=== PATIENT | female | born 1955 | race Caucasian/White ===

== ENCOUNTER 2017-10-09 06:35 | Day surgery (SDC) | payer BC ==
[~2017-10-09 06:35] MED LIST: Acetaminophen TAB* 325 MG PO ONE; Buffered Lidocaine 0.9% SYRIN* 5 ML/SYR SYRINGE INTRADERM ONE; Dexamethasone IV* 4 MG/ML 1 ML (4 MG) IV SLOW PU ONE; Famotidine IV* 10 MG/ML 2 ML (20 mg) IV ONE
[2017-10-09] MEDS ORDERED: Acetaminophen TAB* 325 MG ONE (06:46)
[2017-10-09] MEDS ORDERED: Famotidine IV* 10 MG/ML 2 ML (20 mg) ONE (06:47)
[2017-10-09] MEDS ORDERED: ceFAZolin 2 GM PREMIX (*) 2 GM/50 ML BAG IVPB ONE (06:47)
[2017-10-09] MEDS ORDERED: Dexamethasone IV* 4 MG/ML 1 ML (4 MG) ONE ×3 (06:47→09:54)
[2017-10-09] MEDS ORDERED: Propofol* 500 MG/50 ML BTL ONE (07:17)
[2017-10-09] MEDS ORDERED: Lidocaine 2% PF * 5 ML VIAL ONE (07:18)
[2017-10-09] MEDS ORDERED: Midazolam* 1 MG/ML 2 ML VIAL (2 MG) ONE ×2 (07:25→09:45)
[2017-10-09] MEDS ORDERED: fentaNYL* 50 MCG/ML 2 ML VIAL (100 MCG VIAL) ONE ×2 (07:26→09:06)
[2017-10-09] MEDS ORDERED: Ondansetron INJ* 2 MG/ML VIAL IV PRN (07:33)
[2017-10-09] MEDS ORDERED: oxyCODONE/Acetamin 5/325 MG* TAB PO PRN (07:33)
[2017-10-09] MEDS ORDERED: HYDROmorphone INJ* 1 MG/ML CARPUJECT SYRINGE IV PRN (07:33)
[2017-10-09] MEDS ORDERED: fentaNYL* 50 MCG/ML 2 ML VIAL (100 MCG VIAL) IV PRN (07:33)
[2017-10-09] MEDS ORDERED: PROCHLORPERAZINE INJ 5 MG/ML 2 ML VIAL IV PRN (07:33)
[2017-10-09] MEDS ORDERED: oxyCODONE TAB* 5 MG TAB PO PRN (07:33)
[2017-10-09] MEDS ORDERED: Scopolamine 1.5 mg* PATCH TRANSDERM PRN (07:33)
[2017-10-09] MEDS ORDERED: HYDROcodone/ACETAMIN 5-325 MG* 1 TAB PO PRN (07:33)
[2017-10-09] MEDS ORDERED: Ibuprofen TAB* 600 MG PO PRN (07:33)
[2017-10-09] MEDS ORDERED: DiMENhydriNATE IV* 50 MG/ML VIAL IV PUSH PRN (07:33)
[2017-10-09] MEDS ORDERED: Ketorolac INJ* 30 MG/ML 1 ML VIAL ONE (07:34)
[2017-10-09] MEDS ORDERED: Ondansetron INJ* 2 MG/ML VIAL ONE (07:34)
[2017-10-09] MEDS ORDERED: Lidocaine 1% INJ* 10 MG/ML 30 ML SDV ONE (07:42)
[2017-10-09] MEDS ORDERED: Bupivacaine 0.5% SDV PF* 30 ML VIAL ONE (07:43)
[2017-10-09] MEDS ORDERED: Bacitracin OINTMENT* 0.5% 0.5 oz TUBE ONE (07:43)
[2017-10-09] MEDS ORDERED: Propofol* 10 MG/ML 20 ML BTL IV PUSH ONE ×3 (08:32→09:41)
[2017-10-09] MEDS ORDERED: EPHEDrine (Pressors)* 50 MG/ML VIAL ONE (08:43)
[2017-10-09 10:59] VITALS: BP 118/62
--- NOTE | 2017-10-09 15:20 | OP ---
DATE OF OPERATION: 10/09/17 [facility] DATE OF : 51 SURGEON: Carlos Matt DPM. DELIVERY ASSOCIATE: None. ANESTHESIOLOGIST: Marilin Zamudio MD ANESTHESIA: MAC with local PRE-OP DIAGNOSES: 1. Severe painful bunion deformity left foot. 2. Painful second left hammer toe. POST-OP DIAGNOSES: 1. Severe painful bunion deformity left foot. 2. Painful second left hammer toe. 3. Contracted extensor hallucis longus tendon. OPERATIVE PROCEDURE: 1. Bunionectomy with closing base wedge osteotomy and phalangeal osteotomy on the left foot. 2. Correction of second left hammertoe with PIPJ arthrodesis, MTPJ arthrotomy and extensive tendon lengthening with K-wire fixation, second digit, left foot. 3. Extensor hallucis longus tendon lengthening, left foot. PATHOLOGY: Degenerative bone HEMOSTASIS: Pneumatic ankle tourniquet ESTIMATED BLOOD LOSS: Less than 20 cc. MATERIALS: Three of the 3.0 mm cannulated Jose screws, smooth 0.062 inch K- wire. INDICATIONS: The patient with chronic left forefoot pain and deformity, painful to walk and wear close shoes. She has severe bunion deformity, as well as second hammertoe. The patient opts for surgery at this time to decrease the deformity, attempt to decrease her pain, and improve her function. DESCRIPTION OF PROCEDURE: The patient was brought to the operating room, placed on the operating room table in supine position. The anesthesia department administered IV sedation and peripheral nerve block was performed about the left foot with a 1:1 mixture of 1% lidocaine plain and 0.5% Marcaine plain. The left foot was prepped and draped in usual fashion. Next, an Esmarch bandage was utilized exsanguinated to the left foot and pneumatic ankle tourniquet was inflated to 250 mmHg above a well-padded left ankle. Attention directed to the dorsomedial aspect of the left great toe joint where a curvilinear incision was made. The incision was deepened through subcutaneous tissues with care being taken to retract neurovascular structures and cauterize the superficial bleeders as needed. Next, an inverted L capsular incision was made to allow for exposure of the joint. There was noted to be significant lateral contractures and a McGlamry elevator was needed to free plantar lateral adhesions to the sesamoid apparatus. Next, dissection carried to the first intermetatarsal space where lateral release was performed transecting the conjoint tendon of the abductor hallucis, releasing the lateral fibular sesamoid ligament, posterior lateral capsule, and extensor hallucis brevis tendon was also identified and transected. Next, sagittal saw was used to resect the hypertrophic bone from the medial aspect of first metatarsal head, in a manner so as to preserve the sagittal groove. Resultant bone was sent off the filed. A power papito was used to smooth rough edges. The surgical site was flushed with copious amount of normal sterile saline. Next, a closing base wedge osteotomy was performed with 2 cannulated Whitlash screws used for fixation with standard technique and under guidance with the mini C-arm. The osteotomy was inspected and found to be solid with no detectable motion or gapping. The screws were found to be 2 fingers tight. There was still some lateral deviation and hallux interphalangeus within the great toe, so an angular phalangeal osteotomy was performed and wedge of bone resected and the osteotomy was reduced, and using one 3.0 cannulated Jose screw using standard technique was placed across the osteotomy site under guidance of the mini C-arm. The osteotomy was found to be solid with no detectable motion or gapping and screw was found to be 2 fingers tight. There was still some significant contracture of the extensor hallucis longus tendon and so the tendon sheath was transected, and a Z extensor tendon lengthening procedure was performed to the desired tension and secured with 4-0 Vicryl. The tendon sheath and paratenon was repaired and secured with 4-0 Vicryl. The redundant medial capsule was resected from the medial great toe joint, and surgical site was flushed with copious amount of normal saline. The periosteal and capsule tissues were reapproximated and secured, while holding the hallux in a rectus position and secured with 2-0 Vicryl. Subcutaneous tissues were reapproximated and secured with 4-0 Vicryl and skin was closed with 5-0 nylon. Attention was now directed to the second digit where a curvilinear incision was made dorsally. Dissection carried to the level of the proximal interphalangeal joint as well as the metatarsophalangeal joint with care being taken to retract neurovascular structures and cauterize superficial bleeders as needed. The extensor funez was released, and the proximal phalangeal joint was transected, tenotomy and capsulotomy was performed to allow exposure of the proximal phalangeal head and base of the middle phalanx which was resected with a sagittal saw. The extensor tendon lengthening procedure was also necessary at the level of the metatarsophalangeal joint and a transverse capsulotomy was performed to allow exposure of the joint. McGlamry elevator was needed to free plantar adhesions. The surgical site was flushed with copious amount of normal sterile saline, after the papito was used to smooth rough edges about the proximal interphalangeal joint. Next, using a smooth 0.062 inch wire driven from the base of the phalanx to the tip of the toe, retrograded through the proximal phalanx, and across the metatarsophalangeal joint while holding the digit in the corrected desired position. The position was assessed with mini C- arm. The wire was bent, cut, and capped. The capsule and periosteal tissues were secured with 4-0 Vicryl. The extensor tendon was secured with 4-0 Vicryl and subcutaneous tissues were reapproximated 4-0 Vicryl and the skin was reapproximated and secured with 5-0 nylon. 12 mg of dexamethasone phosphate was infiltrated about the surgical site and the surgical site was dressed with Xeroform gauze and a light compressive dressing was applied consisting of 4x4s, gauze, Kendra, and light Coban wrap. The pneumatic ankle tourniquet was deflated about the left ankle and after a few moments a prompt hyperemic response was noted in all 5 digits of patient's left foot. Having appeared to have tolerated the procedure and the anesthesia well, patient was transported via cart from the operating room to Recovery in satisfactory condition with cap refill less than 3 seconds to all digits of the left foot. [id number]/[facility] #: [id number] [facility]
--- NOTE | 2017-10-10 15:27 | RAD ---
INDICATION: Hallux valgus repair. COMPARISON: No relevant prior exams available on the [facility] [place]. TECHNIQUE: 43 seconds fluoroscopy. FINDINGS: Spot images document first metacarpal and first proximal phalanx osteotomies with hardware fixation. IMPRESSION: Procedural fluoroscopy. CPT II Codes: 6045F
[2017-10-12] MEDS ORDERED: Scopolamine PATCH Remove* 1 NOTE MISC PATCH OFF ONE (07:34)
== END 2017-10-09 10:55 | disposition home or self-care (01) ==
LOC: OREAST 06:35
PROVIDERS: ATTEND Podiatrist Foot Surgery
DX: M21.612 Bunion of left foot (principal); M20.42 Other hammer toe(s) (acquired), left foot; Z68.32 Body mass index [BMI] 32.0-32.9, adult; I10 Essential (primary) hypertension; E04.1 Nontoxic single thyroid nodule; F41.9 Anxiety disorder, unspecified; R60.9 Edema, unspecified; R25.2 Cramp and spasm
CPT/HCPCS: 76000; 88304; 88311; A9270-GY; C1713; C1776; J0690; J1100; J1885; J2250; J2405; J2704; J3010